=== PATIENT | female | born 1985 | race Hispanic/Latino ===

== ENCOUNTER 2017-05-03 00:20 | Inpatient (IN) | payer BC ==
[~2017-05-03] VITALS: Ht 157.5 cm; Wt 136.0 kg
[2017-05-03] MEDS ORDERED: PRENATAL 19 TA1 EAC1 PO (01:32)
--- NOTE | 2017-05-04 02:55 | NUR ---
05/04/17 0255 Esthela Dominguez PT ARRIVES TO [facility] ROOM. IV RIGHT HAND 18G, INTACT
--- NOTE | 2017-05-08 07:52 | OR ---
[facility] [address] [place], [place] [address] Signed DATE OF SERVICE: 05/03/2017 SURGEON: Margarita Coburn MD FINAL CLEANER: Asmita Palma MD PREOPERATIVE DIAGNOSES: Postdates , failure to progress, secondary arrest of dilation. POSTOPERATIVE DIAGNOSES: Postdates , failure to progress, secondary arrest of dilation, delivered. PROCEDURE: Primary section with low-segment transverse uterine incision. ANESTHESIA: Spinal. DRAINS: Mcclellan catheter. ESTIMATED BLOOD LOSS: 1000 mL. INDICATIONS AND FINDINGS: The patient is a 31-year-old female, 1, para 0, admitted at 40-5/7 weeks for induction secondary to preeclampsia. Her had been remarkable for morbid obesity with excess weight gain. She was admitted early the morning on the for induction with Cytotec. She did progress throughout the day to 6 cm; however, at that point, she remained stationary for over 7 hours. She did have internal monitors which confirmed frequent strong contractions. She was on Pitocin augmentation. She had al so undergone AROM earlier in the day with a minimal amount of fluid seen. This did appear to be meconium stained, but there was essentially no fluid visualized. At the time of surgery, she was delivered of a little girl from the ROP position via lower segment transverse uterine incision with Apgars of 8 and 9 and weight of 8 pounds 13 ounces. There was thick meconium on entering the uterus, and there was minimal fluid seen. The uterus, tubes, ovaries, placenta otherwise appeared normal. PROCEDURE IN DETAIL: The patient was prepped and draped in the supine position. The pannus retractor was used secondary to the patient's morbid obesity. A Pfannenstiel skin incision was made and carried down through the subcu to the fascia. The incision was then extended late r ally. The inferior and superior fascial flaps were then created. The muscles were bluntly divided, and the peritoneum was opened bluntly, and the incision extended superiorly and inferiorly. The Karthikeyan retractor was then placed. An incision was made on Electronically Signed By: MARGARITA COBURN MD 05/08/17 0752 PATIENT NAME: ISIAH VANN OPERATIVE REPORT DATE OF : 87 PHYSICIAN: MARGARITA COBURN MD REPORT #: [id number] REPORT IS CONFIDENTIAL AND NOT TO BE RELEASED WITHOUT AUTHORIZATION [facility] [address] [place] [id number] Signed the uterus just above the peritoneal reflection. The baby was delivered with the above findings and handed off to the pediatric staff in attendance. The placenta was removed manually, and the uterus explored with a lap tape showing no remaining fragments. The edges of the incision were identified, and the uterus was closed in 2 layers. This was using 0 Monocryl. The first layer was a running locking stitch, and the second was a vertical imbricating stitch. Additional ecwnzs-mi-nojudp were required near the le f t angle for control of bleeding. Cautery was used on the serosal edges as well. The abdomen was then copiously irrigated and inspected and appeared to be hemostatic. The retractor was removed, and the peritoneum identified. An ACell graft was placed over the lower segment to aid in healing. The peritoneum was then closed with a running suture of 3-0 Vicryl. The muscles were brought together with interrupted sutures of 0 Vicryl. Bleeding points on the muscles were controlled with cautery as well as figure-o f -eight sutures of 0 Vicryl in the subfascial area where perforating vessels were seen to be bleeding. Following this, this layer was irrigated and seemed to be hemostatic. ACell powder was sprinkled over this layer to aid in healing. The fascia was then closed from each angle to the midline with a running suture of 0 Vicryl. Subcutaneous tissue was irrigated, and bleeding points controlled with cautery. It was very deep, and ACell powder was sprinkled in the subcu because of the depth. The subcu layer was closed with a running suture of 3-0 Vicryl. The skin was closed with stuart. All sponge and needle counts were correct. She tolerated the procedure well and was taken to the recovery room in good condition. MD RICK Padilla/Yelitzal /[id number] cc: Asmita Palma MD Electronically Signed By: MARGARITA COBURN MD 05/08/17 0752 PATIENT NAME: ISIAH VANN OPERATIVE REPORT DATE OF : 87 PHYSICIAN: MARGARITA COBURN MD REPORT #: [id number] REPORT IS CONFIDENTIAL AND NOT TO BE RELEASED WITHOUT AUTHORIZATION
--- NOTE | 2017-05-16 18:15 | OR ---
[facility] [address] [place], [place] [address] Signed DATE OF SERVICE: 05/04/2017 SURGEON: Margarita Coburn MD DELI SLICER: Asmita Palma MD PREOPERATIVE DIAGNOSES: Postdates , failure to progress, secondary arrest of dilation. POSTOPERATIVE DIAGNOSES: Postdates , failure to progress, secondary arrest of dilation, delivered. PROCEDURE: Primary section with low-segment transverse uterine incision. ANESTHESIA: Spinal. DRAINS: Mcclellan catheter. ESTIMATED BLOOD LOSS: 1000 mL. INDICATIONS AND FINDINGS: The patient is a 31-year-old female, 1, para 0, admitted at 40-5/7 weeks for induction secondary to preeclampsia. Her had been remarkable for morbid obesity with excess weight gain. She was admitted early the morning on the for induction with Cytotec. She did progress throughout the day to 6 cm; however, at that point, she remained stationary for over 7 hours. She did have internal monitors which confirmed frequent strong contractions. She was on Pitocin augmentation. She had also undergone AROM earlier in the day with a minimal amount of fluid seen. There did appear to be meconium stained, but there was essentially no fluid visualized. At the time of surgery, she was delivered of a little girl from the ROP position via lower segment transverse uterine incision with Apgars of 8 and 9 and weight of 8 pounds 13 ounces. There was thick meconium on entering the uterus, and there was minimal fluid seen. The uterus, tubes, ovaries, placenta otherwise appeared normal. PROCEDURE IN DETAIL: The patient was prepped and draped in the supine position. The pannus retractor was used secondary to the patient's morbid obesity. A Pfannenstiel skin incision was made and carried down through the subcu to the fascia. The incision was then extended laterally. The inferior and superior fascial flaps were then created. The muscles were bluntly divided, and the peritoneum was opened bluntly, and the incision extended superiorly and inferiorly. The Kartihkeyan retractor was then placed . An incision was made on the uterus just above the peritoneal reflection. The baby was delivered with the above findings and handed off to the pediatric staff in attendance. The placenta was removed manually, and the uterus explored with a lap tape showing no Electronically Signed By: MARGARITA COBURN MD 05/16/17 1815 PATIENT NAME: ISIAH VANN OPERATIVE REPORT DATE OF : 87 PHYSICIAN: MARGARITA COBURN MD REPORT #: [id number] REPORT IS CONFIDENTIAL AND NOT TO BE RELEASED WITHOUT AUTHORIZATION [facility] [address] [place], [place] [address] Signed remaining fragments. The edges of the incision were identified, and the uterus was closed in 2 layers. This was using 0 Monocryl. The first layer was a running locking stitch, and the second was a vertical imbricating stitch. Additional dmvzbe-[id number]-pgiztc were required near the left angle for control of bleeding. Cautery was used on the serosal edges as well. The abdomen was then copiously irrigated and inspected and appeared to be hemostatic. The retractor was removed, and the peritoneum identified. An ACell graft was placed over the lower segment to aid in healing. The peritoneum was then closed with a running suture of 3-0 Vicryl. The muscles were brought together with interrupted sutures of 0 Vicryl. Bleeding points on the muscles were controlled with cautery as well as sgsatf-ti-rjcnt sutures of 0 Vicryl in the subfascial area where perforating vessels were seen to be bleeding. Following this, this layer was irrigated and seemed to be hemostatic. ACell powder was sprinkled over this layer to aid in healing. The fascia was then closed from each angle to the midline with a running suture of 0 Vicryl. Subcutaneous tissue was irrigated, and bleeding points controlled with cautery. It was very deep, and ACell powder was sprinkled in the subcu because of the depth. The subcu layer was closed with a running suture of 3-0 Vicryl. The skin was closed with stuart. All sponge and needle counts were correct. She tolerated the procedure well and was taken to the recovery room in good condition. MD RICK Padilla/Yelitzal /[id number] Electronically Signed By: MARGARITA COBURN MD 05/16/17 1815 PATIENT NAME: ISIAH VANN OPERATIVE REPORT DATE OF : 87 PHYSICIAN: MARGARITA COBURN MD REPORT #: [id number] REPORT IS CONFIDENTIAL AND NOT TO BE RELEASED WITHOUT AUTHORIZATION
== END 2017-05-06 15:00 | disposition home or self-care (01) | DRG 766 ==
LOC: FBC 00:20
PROVIDERS: ADMIT Obstetrics & Gynecology
PROC: 10D00Z1 Extraction of Products of Conception, Low, Open Approach (ICD-10-PCS; principal; 2017-05-04 01:12)
DX: O13.4 Gestational [pregnancy-induced] hypertension without significant proteinuria, complicating childbirth (principal); O62.1 Secondary uterine inertia; Z3A.40 40 weeks gestation of pregnancy; Z37.0 Single live birth; O99.214 Obesity complicating childbirth; E66.01 Morbid (severe) obesity due to excess calories; O15.1 Eclampsia complicating labor; O77.0 Labor and delivery complicated by meconium in amniotic fluid
CPT/HCPCS: 01961; 36415; 82803; 85027; C1763; J0690; J1644; J2274; J2405; J2590; J2765; J3010; J7120

== ENCOUNTER 2020-01-14 10:39 | Inpatient (IN) | payer BC ==
[~2020-01-14] VITALS: Ht 157.5 cm; Wt 140.0 kg
[~2020-01-14 10:39] MED LIST: PRENATAL 19 TA1 EAC1 PO
--- NOTE | 2020-01-19 09:22 | NUR ---
01/19/20 0922 Sheets,Vidya 0905 PT ARRIVED TO ROOM 104, VSS. PT TALKING TO RN, PT DENIES PAIN AND NAUSEA. SPINAL LEVEL T-5, PT DENIES SHORTNESS OF BREATH. IV INFUSING LR WITH 20 OF PIT. 0921 BABY TO CHEST WITH [facility] RN AND STUDENT RN.
--- NOTE | 2020-01-20 08:16 | PR ---
[facility] [address] [facility] [place], [place] [address] Signed PP Progress Notes Datetime Report Generated by CPN: 01/20/2020 08:16 SUBJECTIVE: [id number] Pain: Within normal limits Nausea/Vomiting: Denies Flatus: No Vital Signs: [id number] Vital Signs: Reviewed; Within Normal Limits EXAM: [id number] Cardiovascular: Normal Respiratory: Normal Abdomen/Uterus: Abnormal Lochia: Normal Vulva/Perineum: Not Done Breasts: Not Done CVA Tenderness: Not Done Extremities: Normal Incision: Normal Progress: Abnormal Exam Comments: Abdomen with active BS. Fundus firm, NT @ U. H/H 10.8/32.6, WBC 11.1, plat 213k IMPRESSION/PLAN/PROCEDURES: [id number] Impression: Normal progression; difficulties Plan: consult Other Plans: ambulate, shower Procedures: None Progress Notes: Doing well but issues with breast feeding. Signing Physician: Margarita Coburn MD Copies: ~ *Electronically Signed* 01/20/20 0816 MARGARITA COBURN MD PATIENT NAME: ISIAH VANN PROGRESS NOTE DATE OF : 87 PHYSICIAN: MARGARITA COBURN MD RPT #: [id number] REPORT IS CONFIDENTIAL AND NOT TO BE RELEASED WITHOUT AUTHORIZATION
--- NOTE | 2020-01-21 08:31 | PR ---
[facility] [address] [facility] [place], [place] [address] Signed PP Progress Notes Datetime Report Generated by PUMA: 01/21/2020 08:30 SUBJECTIVE: [id number] Pain: Within normal limits Nausea/Vomiting: Denies Flatus: Yes Vital Signs: [id number] Vital Signs: Reviewed; Within Normal Limits EXAM: [id number] Cardiovascular: Normal Respiratory: Normal Abdomen/Uterus: Abnormal Lochia: Normal Vulva/Perineum: Not Done Breasts: Not Done CVA Tenderness: Not Done Extremities: Normal Incision: Normal Progress: Abnormal Exam Comments: Abdomen with active BS. Fundus firm, NT @ U. IMPRESSION/PLAN/PROCEDURES: [id number] Impression: Normal progression Plan: Discharge Other Plans: ambulate, shower Procedures: None Progress Notes: Doing well. She is ready for D/C. Signing Physician: Margarita Coburn MD Copies: ~ *Electronically Signed* 01/21/20829 MARGARITA COBURN MD PATIENT NAME: ISIAH VANN PROGRESS NOTE DATE OF : 87 PHYSICIAN: MARGARITA COBURN MD RPT #: [id number] REPORT IS CONFIDENTIAL AND NOT TO BE RELEASED WITHOUT AUTHORIZATION
--- NOTE | 2020-01-23 18:38 | OR ---
[facility] [address] [place], [place] [address] Signed DATE OF OPERATION: 01/19/2020 SURGEON: Margarita Coburn MD ERP TECHNICAL LEAD: Mario Duncan MD PREOPERATIVE DIAGNOSIS: Term , previous section, morbid obesity. POSTOPERATIVE DIAGNOSIS: Term , previous section, morbid obesity with abdominal adhesions. ANESTHESIA: Spinal. ESTIMATED BLOOD LOSS: 600 mL. DRAINS: Mcclellan catheter. INDICATIONS AND FINDINGS: The patient is a 34-year-old female, 2, para 1, admitted at 39 and 1/7th weeks for repeat section. This has been remarkable only for her morbid obesity, though she has had only approximately 13 pounds of weight gain. At the time of surgery, she delivered a little girl from the ROT position via lower segment transverse uterine incision with Apgars of 8 and 8 and weight of 8'7". The uterus, tubes, ovaries, and placenta appeared normal. She did have an adhesion of the anterior uterus to the peritoneum as well as another adhesion of the omentum to the anterior peritoneum. DESCRIPTION OF PROCEDURE: The patient was prepped and draped in the supine position. A Pfannenstiel skin incision was made through her prior incision and carried down through the fascia. The incision was extended laterally. The inferior and superior fascial flaps were then created. The muscles were bluntly divided and the peritoneum opened sharply and the incision extended superiorly and inferiorly. The adhesion on the anterior uterine wall was then clamped with Renetta clamps, divided, and free tied with 2-0 chromic. The Karthikeyan retractor was then placed. The uterine incision was then made at the upper aspect of the peritoneal reflection. There was clear fluid at delivery and the baby was delivered with the above Electronically Signed By: MARGARITA COBURN MD 01/23/20 1838 PATIENT NAME: ISIAH VANN OPERATIVE REPORT DATE OF : 87 REPORT #: [id number] PHYSICIAN: MARGARITA COBURN MD PCP: NO PRIMARY CARE PHYSICIAN REPORT IS CONFIDENTIAL AND NOT TO BE RELEASED WITHOUT AUTHORIZATION [facility] [address] [place], [place] [address] Signed findings and handed off to the pediatric staff in attendance. Following this, the placenta was removed manually. The uterus was explored with a lap tape assuring no remaining fragments. The edges of the incision were identified. The uterus was closed in 2 layers using 0-Monocryl. The first layer was a running locking stitch and second was a vertical imbricating stitch. Good hemostasis was noted. The abdomen was then copiously irrigated, inspected, and again hemostasis was noted. The retractor was removed and the peritoneum identified. An Acell graft was laid over the lower segment to aid in healing. The peritoneum was then closed with a running suture of 3-0 Vicryl. However, at the upper 3rd an adhesion of the omentum to the anterior peritoneum was identified and this was divided with the hemostats and free tied with a 2-0 chromic as well. This allowed for further closure of the peritoneum without difficulty. The muscles were brought together with interrupted sutures of 0 Vicryl. Bleeding points were controlled with cautery. ACell powder was then sprinkled over the muscles to aid in healing. The fascia was then closed from each angle to the midline with a running suture of 0 Vicryl. The subcutaneous tissue was very deep, given her morbid obesity. Bleeding points were controlled with cautery. ACell powder was sprinkled into this layer to aid in healing. The deep space was then closed with interrupted sutures of 3-0 Vicryl. The skin was closed with stuart. All sponge and needle counts were correct. She tolerated the procedure well and was taken to the recovery room in good condition. Margarita Coburn MD PJW/MODL /[id number] cc: Mario Duncan MD Copies: MARIO DUNCAN MD ~ Electronically Signed By: MARGARITA COBURN MD 01/23/20 1838 PATIENT NAME: ISIAH VANN OPERATIVE REPORT DATE OF : 87 REPORT #: [id number] PHYSICIAN: MARGARITA COBURN MD PCP: NO PRIMARY CARE PHYSICIAN REPORT IS CONFIDENTIAL AND NOT TO BE RELEASED WITHOUT AUTHORIZATION
== END 2020-01-21 12:15 | disposition home or self-care (01) | DRG 788 ==
LOC: FBC 01-19 04:55
PROVIDERS: ADMIT Obstetrics & Gynecology
PROC: 10D00Z1 Extraction of Products of Conception, Low, Open Approach (ICD-10-PCS; principal; 2020-01-19 06:45)
DX: O34.211 Maternal care for low transverse scar from previous cesarean delivery (principal); N85.8 Other specified noninflammatory disorders of uterus; Z3A.39 39 weeks gestation of pregnancy; Z37.0 Single live birth; O99.214 Obesity complicating childbirth; E66.01 Morbid (severe) obesity due to excess calories; O32.2XX0 Maternal care for transverse and oblique lie, not applicable or unspecified
CPT/HCPCS: 01961; 36415; 85027; A9270; J0690; J1644; J2274; J2590; J7121